=== PATIENT | female | born 1940 | race Caucasian/White ===

== ENCOUNTER 2016-10-29 16:22 | Emergency (ER) | payer OTHER, MEDICARE ==
[~2016-10-29] VITALS: Ht 167.6 cm; Wt 68.0 kg
[~2016-10-29 16:22] MED LIST: ATENOLOL25 MG PO; AUGMENTIN 875-1 EACH PO; BIOTIN10000 MCG PO; CALCIUM 600600 M1 PO; COZAAR 50MG TAB50 MG PO; CRESTOR 10MG10 MG PO; CRESTOR10 MG PO; DILAUDID4 M1 PO; DILTIAZEM HCL120 M2 PO; DILTIAZEM180 MG PO; FISH OIL CONC1000 MG PO; IMURAN 50MG TAB50 MG PO; MAG-OX 400400 MG PO; MELATONIN3 MG PO; MIRALAX119 GM PO; NEURONTIN300 M1 PO; OCUVITE1 TA1 PO; OMEPRAZOLE D/R20 MG PO; PRESERVISION AR1 SGL PO; RITE AID MELATO10 MG PO; SENNA PLUS TAB1 EACH PO; XANAX0.5 MG PO
--- NOTE | 2016-10-29 17:05 | ED CARDIAC/CP/PALPITATIONS ---
History of Present Illness General Chief Complaint: Chest Pain Stated Complaint: SVT PER PT Source: patient, family, old records Exam Limitations: no limitations Allergies Coded Allergies: NO KNOWN ALLERGIES (05/15/16) Reconcile Medications Alprazolam (Xanax) 0.5 MG TAB 1 TAB PO PRN SLEEP (Reported) Amoxicillin/Potassium Clav (Augmentin 875-125 Tablet) 875 MG-125 MG TABLET 1 TAB PO BID PNEUMONIA Ascorbic Acid/Copper/Vitamin (Preservision Areds) 1 SGL SGL 1 SGL PO BID SUPPLEMENT (Reported) Atenolol 25 MG TABLET 1 TAB PO BID HEART (Reported) Azathioprine (Imuran 50MG Tab) 50 MG TABLET 2.5 TAB PO DAILY AUTOIMMUNE ( Reported) Biotin 10,000 MCG CAPSULE 0.5 TAB PO DAILY HAIR (Reported) Calcium Carbonate (Calcium 600) 600 MG TAB 2 TAB PO DAILY SUPPLEMENT ( Reported) DILTIAZEM HCL (Diltiazem 24HR Cd) 180 MG CER 1 CAP PO DAILY HEART/BP ( Reported) Gabapentin (Neurontin) 300 MG CAPSULE 3 CAP PO 0800, 1300 RESTLESS LEG ( Reported) Gabapentin (Neurontin) 300 MG CAPSULE 4 CAP PO QPM RESTLESS LEG (Reported) Hydromorphone HCl (Dilaudid) 4 MG TABLET 1 TAB PO TIDPRN PAIN (Reported) Magnesium Oxide (Mag-Ox 400) 400 MG TAB 1 TAB PO DAILY SUPPLEMENT (Reported) Melatonin ([facility] Melatonin) 10 MG TAB 1 TAB PO DAILY SLEEP (Reported) Polyethylene Glycol 3350 (Miralax) 17 GRAM/DOSE POWDER 17 GM PO DAILY PRN constipation Rosuvastatin Calcium (Crestor) 10 MG TAB 10 MG PO DAILY CHOLESTEROL (Reported ) Triage Nurses Notes Reviewed? yes HPI: 76-year-old female with history of SVT multiple times, she has been seen here multiple times for same, most recently within the last month, she states that she was walking into her ENT appointment as afternoon approximately 45 minutes prior to arrival, when she had sudden onset of symptoms consistent with SVT with fast pounding heart rate, feeling lightheaded and mildly dizzy. She drove to the ER with her . She has had SVT resolved spontaneously, had did resolve with carotid massage and is also required adenosine. She has an marketing summer intern that she has been speaking with about possibly having an ablation. Her symptoms are moderate. She denies any chest pain or shortness of breath. (LADI THOMAS) Vital Signs & Intake/Output Vital Signs & Intake/Output Vital Signs Date Time Temp Pulse Resp B/P Pulse O2 O2 Flow FiO2 Ox Delivery Rate 10/29 1753 97.1 72 18 130/80 97 Room Air 10/29 1744 166 10/29 1643 168 18 129/82 100 Past History Travel History Traveled to [place] past 21 day No Medical History Any Pertinent Medical History? 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 No (LADI THOMAS) Review of Systems Review of Systems Constitutional: Reports: see HPI. EENTM: Reports: no symptoms. Respiratory: Reports: no symptoms. Cardiovascular: Reports: see HPI. GI: Reports: no symptoms. Genitourinary: Reports: no symptoms. Musculoskeletal: Reports: no symptoms. Skin: Reports: no symptoms. Neurological/Psychological: Reports: no symptoms. Hematologic/Endocrine: Reports: no symptoms. Immunologic/Allergic: Reports: no symptoms. All Other Systems: Reviewed and Negative (LADI THOMAS) Physical Exam Physical Exam General Appearance: well developed/nourished Cardiovascular: tachycardia Comments: Well-developed well-nourished no apparent distress. Mildly pale appearing, mildly anxious HEENT: Atraumatic, extraocular motion intact Neck: Supple, no lymphadenopathy Back: Nontender Respiratory: No respiratory distress clear to auscultation bilateral. Heart regular rate and rhythm no murmur Extremities: No edema, full range of motion Neuro: Alert and oriented x3 Psych: Mood affect normal, normal memory normal judgment. Skin: Warm and dry, no rash on exposed skin Core Measures ACS in differential dx? Yes Severe Sepsis Present: No Septic Shock Present: No (LADI THOMAS) Progress Differential Diagnosis: AMI, aortic dissection, atrial fibrillation, cholecystitis, CHF/pulm edema, costochondritis, hyperkalemia, hypovolemia, hyperthyroid, hyperventilation, intracranial hemorrhage, musculoskeletal pain, myocarditis, pancreatitis, pericarditis, pneumonia, pneumothorax, PSVT, pulmonary embolism, PUD/GERD, PVCs/PACs, respiratory failure, rib fracture, sepsis, unstable angina, V-fib/V-Tach, WPW syndrome Initial ED EKG: supraventricular tachycardia at 167 bpm, nonspecific ST-T wave changes likely rate related. changed from most recent previous EKG Prior EKG: changed Rhythm Strip: SVT Comments: Carotid massage return at the bedside. Patient started on IV fluids. No change in SVT. She required adenosine 6 mg IV push. She immediately returned to normal sinus rhythm, continuous EKG was performed which verified this. Her symptoms have resolved. The patient does not wish to stay for blood tests, she has agreed to monitor for the next half hour on the secured entrance monitor to evaluate her rhythm. She is asymptomatic. Patient reevaluated again, she remains asymptomatic, sinus on the monitor at 70 bpm, she is stable for discharge home with close follow-up with her banquet line cook. (LADI THOMAS) Plan of Care: Orders Procedure Date/time Status COMPREHENSIVE METABOLIC PANEL 10/29 1655 Complete CBC WITHOUT DIFFERENTIAL 10/29 1655 Complete EKG 10/29 1623 Active Laboratory Tests 10/29/16 1700: Anion Gap 14, Estimated GFR > 60, BUN/Creatinine Ratio 21.3, Glucose 111 H, Calcium 9.9, Total Bilirubin 0.6, AST 43 H, ALT 25, Alkaline Phosphatase 103, Total Protein 8.1, Albumin 4.5, Globulin 3.6, Albumin/Globulin Ratio 1.3, CBC w Diff NO MAN DIFF REQ, RBC 4.86, MCV 87.9, MCH 29.2, RDW 17.4 H, MPV 7.9, Gran % 53.3, Lymphocytes % 31.1, Monocytes % 11.5 H, Eosinophils % 3.7, Basophils % 0.4, Absolute Granulocytes 3.1, Absolute Lymphocytes 1.8, Absolute Monocytes 0.7 H, Absolute Eosinophils 0.2, Absolute Basophils 0, PUBS MCHC 33.2 Departure Departure Disposition: HOME OR SELF CARE Condition: Stable Clinical Impression Primary Impression: SVT (supraventricular tachycardia) Referrals: UNKNOWN (PCP/Family) Additional Instructions: Follow-up with your marketing summer intern banquet line cook for further evaluation and treatment of your recurrent SVT Return to the ER with any concerning symptoms of chest pain, fast heart rate, feeling dizzy or lightheaded. Departure Forms: Customer Survey General Discharge Information (LADI THOMAS) PA/MEDICAL IMAGING SPECIALIST Co-Sign Statement Statement: ED Attending supervision documentation- [x] I saw and evaluated the patient. I have also reviewed all the pertinent lab results and diagnostic results. I agree with the findings and the plan of care as documented in the PA's/MEDICAL IMAGING SPECIALIST's documentation. [] I have reviewed the ED Record and agree with the PA's/MEDICAL IMAGING SPECIALIST's documentation. [] Additions or exceptions (if any) to the PAs/MEDICAL IMAGING SPECIALIST's note and plan are summarized below: [] (MALOU SULLIVAN,NICK Pretty) Critical Care Note Critical Care Note Critical Care Time: 30-74 min (LADI THOMAS)
[2016-10-29 17:31] LABS: ABSOLUTE BASOPHIL COUNT 0 /CUMM (0.0-0.2); ABSOLUTE EOSINOPHIL COUNT 0.2 /CUMM (0.0-0.7); ABSOLUTE GRANULOCYTE CT 3.1 /CUMM (1.4-6.5); ABSOLUTE LYMPH COUNT 1.8 /CUMM (1.2-3.4); ABSOLUTE MONOCYTE COUNT 0.7 /CUMM (0.10-0.60); BASOPHIL % 0.4 % (0.0-2.0); EOSINOPHIL % 3.7 % (0-5); GRANULOCYTE % 53.3 % (42.2-75.2); HEMATOCRIT 42.8 % (37-47); MEAN CORPUSCULAR HGB 29.2 PG (27.0-31.0); MEAN CORPUSCULAR HGB CONC 33.2 G/DL (33.0-37.0); MEAN CORPUSCULAR VOLUME 87.9 FL (81.0-99.0); MEAN PLATELET VOLUME 7.9 FL (7.4-10.4); PLATELET COUNT 121 /CUMM (130-400); RBC DISTRIBUTION WIDTH 17.4 % (11.5-14.5); RED BLOOD CELL CT 4.86 /CUMM (4.20-5.40); WHITE BLOOD CELL COUNT 5.9 /CUMM (4.8-10.8)
[2016-10-29 17:53] VITALS: BP 130/80
== END 2016-10-29 17:55 ==
LOC: ERH 16:22
PROVIDERS: Physician Assistant Surgical
DX: R07.89 Other chest pain (principal); I47.1 Supraventricular tachycardia
CPT/HCPCS: 93005; 93010; 96374; 99291; J0153

== ENCOUNTER 2016-12-31 06:33 | Emergency (ER) | payer OTHER, MEDICARE ==
[~2016-12-31] VITALS: Ht 167.6 cm; Wt 74.4 kg
[2016-12-31 07:36] LABS: ABSOLUTE BASOPHIL COUNT 0 /CUMM (0.0-0.2); ABSOLUTE EOSINOPHIL COUNT 0.2 /CUMM (0.0-0.7); ABSOLUTE GRANULOCYTE CT 2.8 /CUMM (1.4-6.5); ABSOLUTE MONOCYTE COUNT 0.5 /CUMM (0.10-0.60); BASOPHIL % 0.3 % (0.0-2.0); EOSINOPHIL % 4.2 % (0-5); GRANULOCYTE % 62.8 % (42.2-75.2); HEMATOCRIT 41.8 % (37-47); MEAN CORPUSCULAR HGB 29.7 PG (27.0-31.0); MEAN CORPUSCULAR HGB CONC 33.4 G/DL (33.0-37.0); MEAN CORPUSCULAR VOLUME 88.9 FL (81.0-99.0); MEAN PLATELET VOLUME 8.1 FL (7.4-10.4); PLATELET COUNT 111 /CUMM (130-400); RBC DISTRIBUTION WIDTH 15.8 % (11.5-14.5); WHITE BLOOD CELL COUNT 4.5 /CUMM (4.8-10.8)
[2016-12-31 08:07] VITALS: BP 162/72
--- NOTE | 2016-12-31 08:17 | ED CARDIAC/CP/PALPITATIONS ---
History of Present Illness General Chief Complaint: Chest Pain Stated Complaint: PT C/O CHEST PAIN HX SVT Source: patient, family, old records Exam Limitations: no limitations Vital Signs & Intake/Output Vital Signs & Intake/Output Vital Signs Date Time Temp Pulse Resp B/P B/P Pulse O2 O2 Flow FiO2 Mean Ox Delivery Rate 12/31 0807 98.6 61 18 162/72 98 Room Air 12/31 0702 97 Room Air 12/31 0657 95.5 60 18 194/88 96 Room Air Allergies Coded Allergies: NO KNOWN ALLERGIES (05/15/16) Reconcile Medications Alprazolam (Xanax) 0.5 MG TAB 1 TAB PO PRN SLEEP (Reported) Amoxicillin/Potassium Clav (Augmentin 875-125 Tablet) 875 MG-125 MG TABLET 1 TAB PO BID PNEUMONIA Ascorbic Acid/Copper/Vitamin (Preservision Areds) 1 SGL SGL 1 SGL PO BID SUPPLEMENT (Reported) Atenolol 25 MG TABLET 1 TAB PO BID HEART (Reported) Azathioprine (Imuran 50MG Tab) 50 MG TABLET 2.5 TAB PO DAILY AUTOIMMUNE ( Reported) Baclofen 10 MG TABLET 1 TAB PO TIDPRN PRN muscle spasm/strain Biotin 10,000 MCG CAPSULE 0.5 TAB PO DAILY HAIR (Reported) Calcium Carbonate (Calcium 600) 600 MG TAB 2 TAB PO DAILY SUPPLEMENT ( Reported) DILTIAZEM HCL (Diltiazem 24HR Cd) 180 MG CER 1 CAP PO DAILY HEART/BP ( Reported) Gabapentin (Neurontin) 300 MG CAPSULE 3 CAP PO 0800, 1300 RESTLESS LEG ( Reported) Gabapentin (Neurontin) 300 MG CAPSULE 4 CAP PO QPM RESTLESS LEG (Reported) Hydromorphone HCl (Dilaudid) 4 MG TABLET 1 TAB PO TIDPRN PAIN (Reported) Magnesium Oxide (Mag-Ox 400) 400 MG TAB 1 TAB PO DAILY SUPPLEMENT (Reported) Melatonin ([facility] Melatonin) 10 MG TAB 1 TAB PO DAILY SLEEP (Reported) Polyethylene Glycol 3350 (Miralax) 17 GRAM/DOSE POWDER 17 GM PO DAILY PRN constipation Rosuvastatin Calcium (Crestor) 10 MG TAB 10 MG PO DAILY CHOLESTEROL (Reported ) Triage Note: pt to ed c/o pain under left breast that woke her from sleep at 0430. pain comes and goes, denies at this time. c/o sob even at rest. pain goes to back. took 4 mg hydromorphone at 0500, states "i need to talk to my pain management doctor because now it takes an hour for it to kick in" has chronic back pain. felt light headed and dizzy off and on since yesterday. pmh of acid reflux "it's been worse than normal lately" nsr on ekg, hr 62. had ablation for svt on 11/28 Triage Nurses Notes Reviewed? yes Onset: Morning Duration: hour(s):, continues in ED, intermittent Timing: recent history Quality/Severity: moderate, aching Location: left-sided Radiation: back Activities at Onset: rest Prior Chest Pain/Card Workup: echocardiography, stress test Modifying Factors: Improves With: rest. Nitro Today/Relief: no nitro taken today Aspirin Today: no aspirin today Associated Symptoms: back pain, palpitations LMP (ages 10-50): post menopausal : No Patient currently breastfeeds: No HPI: 2.5 Hours prior to admission patient awoke with palpitations similar to her previous SVT resolving on its own. She then developed her chronic back pain and left-sided chest discomfort described as mild to moderate lasting 10 seconds resolving spontaneous associated with anxiety. She reports having episodes in the past with her back pain accompanied with this chest discomfort. She denies fever chills nausea vomiting diarrhea abdominal pain shortness of breath headache dysuria rash bleeding. She reports her reflux has been worsening of late off Prilosec taking when necessary Pepcid with improvement in symptoms. Past History Travel History Traveled to [place] past 21 day No Medical History Any Pertinent Medical History? 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 No Review of Systems Review of Systems Constitutional: Reports: no symptoms. EENTM: Reports: no symptoms. Respiratory: Reports: no symptoms. Cardiovascular: Reports: see HPI, chest pain, palpitations. GI: Reports: see HPI. Genitourinary: Reports: no symptoms. Musculoskeletal: Reports: see HPI, back pain. Skin: Reports: no symptoms. Neurological/Psychological: Reports: see HPI, anxiety. Hematologic/Endocrine: Reports: no symptoms. Immunologic/Allergic: Reports: no symptoms. All Other Systems: Reviewed and Negative Physical Exam Physical Exam General Appearance: well developed/nourished, alert, awake, anxious, mild distress, obese Head: atraumatic, normal appearance Eyes: Bilateral: normal appearance, PERRL, EOMI. Ears, Nose, Throat: normal pharynx, normal ENT inspection, hearing grossly normal Neck: normal inspection, supple, full range of motion Respiratory: normal breath sounds, chest non-tender, no respiratory distress, quiet respiration, lungs clear Cardiovascular: regular rate/rhythm, normal peripheral pulses, norml femoral pulses equa Peripheral Pulses: 4+ carotid (R), 4+ carotid (L) Gastrointestinal: normal bowel sounds, soft, non-tender, no organomegaly Back: normal inspection, normal range of motion, muscle spasm (left upper back) Extremities: normal inspection, normal capillary refill, normal range of motion, no edema Neurologic/Psych: no motor/sensory deficits, awake, alert, oriented x 3, normal gait, normal mood/affect Reflexes: 2+: bicep (R), bicep (L). Skin: intact, normal color, warm/dry Lymphatic: no anterior cervical eliana Core Measures ACS in differential dx? Yes ASA ordered for poss ACS? No-ACS ruled out Severe Sepsis Present: No Septic Shock Present: No Progress Differential Diagnosis: AMI, hyperkalemia, hypovolemia, musculoskeletal pain, pneumonia, PUD/GERD Plan of Care: Orders Procedure Date/time Status TROPONIN LEVEL 01/01 704 Complete MAGNESIUM 01/01 704 Complete COMPREHENSIVE METABOLIC PANEL 01/01 704 Complete CHOLESTEROL 01/01 704 Complete CBC WITHOUT DIFFERENTIAL 01/01 704 Complete EKG 12/31 0634 Active Current Medications Sig/Gissel Start time Last Medication Dose Stop Time Status Admin Azathioprine 125 MG DAILY 12/31 1000 CAN (Imuran 50MG Tab) Atenolol 25 MG ONCE ONE 12/31 0745 CAN (Tenormin) 12/31 0746 Atorvastatin Calcium 40 MG ONCE ONE 12/31 0745 CAN (Lipitor) 12/31 745 Calcium Carbonate 1,250 MG ONCE ONE 12/31 744 CAN (Calcium Carbonate) 12/31 745 Diltiazem HCl 180 MG ONCE ONE 12/31 744 CAN (Cardizem CD) 12/31 745 Gabapentin 900 MG ONCE ONE 12/31 744 CAN (Neurontin) 12/31 745 Laboratory Tests 12/31/16 0710: Anion Gap 14, Estimated GFR > 60, BUN/Creatinine Ratio 18.6, Glucose 128 H, Calcium 9.5, Magnesium 2.0, Total Bilirubin 0.8, AST 41 H, ALT 23, Alkaline Phosphatase 104, Troponin I < 0.01, Total Protein 8.2, Albumin 4.4, Globulin 3.8 , Albumin/Globulin Ratio 1.2, Cholesterol 158, CBC w Diff NO MAN DIFF REQ, RBC 4.70, MCV 88.9, MCH 29.7, RDW 15.8 H, MPV 8.1, Gran % 62.8, Lymphocytes % 21.3, Monocytes % 11.4 H, Eosinophils % 4.2, Basophils % 0.3, Absolute Granulocytes 2.8, Absolute Lymphocytes 1.0 L, Absolute Monocytes 0.5, Absolute Eosinophils 0.2, Absolute Basophils 0, PUBS MCHC 33.4 CXR Impression: declined CXR Initial ED EKG: normal axis, normal intervals, normal p-waves, normal QRS complex, normal sinus rhythm, no ST T wave changes Departure Departure Time of Disposition: 917 Disposition: HOME OR SELF CARE Condition: Stable Clinical Impression Primary Impression: Palpitations Secondary Impressions: Chronic high back pain, Musculoskeletal chest pain Referrals: AVELINA SULLIVAN,ENRRIQUE Rehman Call for back pain evaluation ANUJA SULLIVAN,GEENA Sawyer Departure Forms: Customer Survey General Discharge Information Prescriptions: Current Visit Scripts Baclofen 1 TAB PO TIDPRN PRN muscle spasm/strain #30 TAB Critical Care Note Critical Care Note Critical Care Time: non-applicable
[2016-12-31] MEDS ORDERED: BACLOFEN10 M1 PO (09:20)
== END 2016-12-31 09:41 ==
LOC: ERH 06:33
PROVIDERS: Emergency Medicine
DX: R00.2 Palpitations (principal); G89.29 Other chronic pain; M54.6 Pain in thoracic spine; R07.89 Other chest pain
CPT/HCPCS: 93005; 93010; 96374; 96375; J0131; J3360

== ENCOUNTER 2017-10-30 13:36 | Emergency (ER) | payer OTHER, MEDICARE ==
[~2017-10-30] VITALS: Ht 166.4 cm; Wt 66.7 kg
[~2017-10-30 13:36] MED LIST changes: +BACLOFEN10 M1 PO
[2017-10-30 13:41] VITALS: BP 139/93
== END 2017-10-30 13:47 | disposition admitted as inpatient to this hospital (09) ==
LOC: ERH 13:36
DX: M62.830 Muscle spasm of back (principal)

== ENCOUNTER 2018-01-26 06:46 | Inpatient (IN) | payer OTHER, MEDICARE ==
[~2018-01-26] VITALS: Ht 167.6 cm; Wt 68.0 kg
[~2018-01-26 06:46] MED LIST changes: +XANAX0.5 M1 PO; -XANAX0.5 MG PO
[2018-01-26 07:32] LABS: ABSOLUTE BASOPHIL COUNT 0 /CUMM (0.0-0.2); ABSOLUTE EOSINOPHIL COUNT 0.3 /CUMM (0.0-0.7); ABSOLUTE GRANULOCYTE CT 3.7 /CUMM (1.4-6.5); ABSOLUTE LYMPH COUNT 0.9 /CUMM (1.2-3.4); ABSOLUTE MONOCYTE COUNT 0.5 /CUMM (0.10-0.60); BASOPHIL % 0.3 % (0.0-2.0); HEMATOCRIT 35.2 % (37-47); MEAN CORPUSCULAR HGB 28.5 PG (27.0-31.0); MEAN CORPUSCULAR HGB CONC 33.2 G/DL (33.0-37.0); MEAN PLATELET VOLUME 7.1 FL (7.4-10.4); PLATELET COUNT 164 /CUMM (130-400); RBC DISTRIBUTION WIDTH 14.4 % (11.5-14.5); RED BLOOD CELL CT 4.09 /CUMM (4.20-5.40); WHITE BLOOD CELL COUNT 5.4 /CUMM (4.8-10.8)
--- NOTE | 2018-01-26 07:47 | ED NECK/BACK PAIN COMPLAINT ---
History of Present Illness General Chief Complaint: Abdominal Pain/Flank Pain Stated Complaint: LOWER BACK PAIN RADIATING TOWARDS FRONT Source: patient, family, old records Exam Limitations: no limitations Vital Signs & Intake/Output Vital Signs & Intake/Output Vital Signs Date Time Temp Pulse Resp B/P B/P Pulse O2 O2 Flow FiO2 Mean Ox Delivery Rate 01/26 1105 98.3 70 16 121/59 96 Room Air 01/26 1020 98.2 77 15 122/62 99 Room Air Room Air 01/26 0654 96.8 90 22 195/81 96 Room Air Room Air Allergies Coded Allergies: NO KNOWN ALLERGIES (05/15/16) Reconcile Medications Alprazolam (Xanax) 0.5 MG TABLET 1 TAB PO QPM PRN SLEEP (Reported) Ascorbic Acid/Copper/Vitamin (Preservision Areds) 1 SGL SGL 1 SGL PO BID SUPPLEMENT (Reported) Azathioprine 50 MG TABLET 2 TAB PO DAILY Hepatitis (Reported) Baclofen 10 MG TABLET 1 TAB PO TIDPRN PRN muscle spasm/strain Biotin 10,000 MCG CAPSULE 0.5 TAB PO DAILY HAIR (Reported) Calcium Carbonate (Calcium 600) 600 MG TAB 2 TAB PO DAILY SUPPLEMENT ( Reported) Gabapentin (Neurontin) 300 MG CAPSULE 900 MG PO TID RESTLESS LEG (Reported) Hydromorphone HCl (Dilaudid) 4 MG TABLET 1 TAB PO TIDPRN PAIN (Reported) Lisinopril 20 MG TABLET 1 TAB PO DAILY HTN (Reported) Magnesium Oxide (Mag-Ox 400) 400 MG TAB 1 TAB PO DAILY SUPPLEMENT (Reported) Melatonin ([facility] Melatonin) 10 MG TAB 1 TAB PO DAILY SLEEP (Reported) Metoprolol Succ XL (Toprol XL) 25 MG TAB 1 TAB PO DAILY bp (Reported) Polyethylene Glycol 3350 (Miralax) 17 GRAM/DOSE POWDER 17 GM PO DAILY PRN constipation Rosuvastatin Calcium (Crestor) 10 MG TAB 10 MG PO DAILY CHOLESTEROL (Reported ) Triage Note: 77YO FEMALE TO TRIAGE W/CO RFLANK AREA PAIN THAT AWOKE HER THIS AM. STATES "SHE HAS HAD BACK PROBLEMS FOR YEARS, HAD AN MRI LAST WEEK" Triage Nurses Notes Reviewed? yes Onset: Just prior to arrival Duration: hour(s):, constant, continues in ED, getting worse Timing: recent history Quality/Severity: severe, sharpness Location: lumbar spine, paraspinous muscles Radiation: RLQ Method of Injury: unknown Loss of Consciousness: no loss of consciousness Modifying Factors: immobilization, movement Associated Symptoms: lower back pain LMP (ages 10-50): post menopausal : No Patient currently breastfeeds: No HPI: Several weeks prior to admission patient complains of postnasal drip nonproductive cough. Prior to admission patient awoke with sharp severe right lower flank with some radiation to the right lower quadrant associated with nausea worse with turning bending. She denies fever chills vomiting diarrhea chest pain shortness of breath headache dysuria rash bleeding change in motor sensory function change in bowel bladder habit. Past History Travel History Traveled to [place] past 21 day No Medical History Any Pertinent Medical History? 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 No Review of Systems Review of Systems Constitutional: Reports: no symptoms. Eyes: Reports: no symptoms. Ears, Nose, Throat, Mouth: Reports: no symptoms. Respiratory: Reports: see HPI, cough. Cardiovascular: Reports: no symptoms. Gastrointestinal/Abdominal: Reports: no symptoms. Musculoskeletal: Reports: see HPI, back pain. Skin: Reports: no symptoms. Neurological/Psychological: Reports: no symptoms. All Other Systems: Reviewed and Negative Physical Exam Physical Exam General Appearance: well developed/nourished, alert, awake, anxious, severe distress Head: atraumatic, normal appearance Eyes: Bilateral: normal appearance, PERRL, EOMI, normal inspection. Ears, Nose, Throat, Mouth: hearing grossly normal, moist mucous membrane Neck: normal inspection, supple, full range of motion, normal alignment Respiratory: normal breath sounds, chest non-tender, no respiratory distress, quiet respiration, lungs clear Cardiovascular: regular rate/rhythm, normal peripheral pulses, norml femoral pulses equa Peripheral Pulses: 4+ carotid (R), 4+ carotid (L) Gastrointestinal: normal bowel sounds, soft, non-tender, no organomegaly Back: normal inspection, decreased range of motion, muscle spasm Extremities: non-tender, normal range of motion Straight Leg Raising: Right: Pain at ____ degrees (5). Left: Pain at ____ degrees (5). Sensory: Medial Le: L4R, L4L. Top of Foot: 2: L5R, L5L. Sole of Foot: 2: SIR, JOSE. Motor: Deficit L4 Right: No Deficit L4 Left: No Deficit L5 Right: No Deficit L5 Left: No Deficit S1 Right: No Deficit S1 Right: No DTR: Deficit L4 Left: No Deficit L4 Right: No Deficit S1 Left: No Deficit S1 Right: No Patellar: 3: L4 Right, L4 Left. Neurologic/Psych: awake, alert, oriented x 3, normal mood/affect Skin: intact, normal color, warm/dry Core Measures CVA/TIA Diagnosis: No Progress Differential Diagnosis: herniated disc, myofascial strain, pyelo/UTI, sciatica Plan of Care: Orders Procedure Date/time Status CBC WITHOUT DIFFERENTIAL 01/27 0600 Active BASIC ELECTROLYTES PLUS BUN&CR 01/27 0600 Active Regular Diet 01/26 L Complete Regular Diet 01/26 D Active Pathway - chart 01/26 1109 Active House Staff 01/26 1109 Active Code Status 01/26 1109 Active Patient Data 01/26 1005 Active BLOOD CULTURE 01/26 0934 Active OXYGEN SETUP (GEN) 01/26 0925 Active Saline Lock 01/26 0925 Active Admit to inpatient 01/26 0925 Active Vital Signs 01/26 0925 Active Activity/Ambulation 01/26 0925 Active BLOOD CULTURE 01/26 0925 Active Code Status 01/26 0925 Complete Intake & Output 01/26 0809 Active URINALYSIS 01/26 0727 Active TROPONIN LEVEL 01/26 0657 Complete LIPASE 01/26 0657 Complete HEPATIC FUNCTION PANEL 01/26 0657 Complete CBC WITHOUT DIFFERENTIAL 01/26 0657 Complete BASIC METABOLIC PANEL 01/26 0657 Complete AMYLASE 01/26 0657 Complete EKG 01/26 0657 Active VTE Mechanical Prophylaxis 01/26 UNK Active Hemoccult 01/26 UNK Active Heat/Cold Therapy 01/26 UNK Active Current Medications Sig/Gissel Start time Last Medication Dose Stop Time Status Admin Enoxaparin Sodium 40 MG DAILY 01/27 0900 AC (Lovenox) Metoprolol Succinate 25 MG DAILY 01/27 0900 AC (Toprol XL) Melatonin 10 MG QPM 01/26 2100 AC (Melatonin) Polyethylene Glycol 17 GM AT BEDTIME 01/26 2100 AC (Miralax) Senna/Docusate Sodium 2 TAB AT BEDTIME 01/26 2100 AC (Senokot S) Atorvastatin Calcium 40 MG 1700 01/26 1700 AC (Lipitor) Gabapentin 900 MG TID 01/26 1400 AC (Neurontin) Ibuprofen 400 MG Q6 01/26 1200 AC (Motrin) Alprazolam 0.5 MG QPM PRN 01/26 1115 AC (Xanax) 02/02 111 Baclofen 10 MG TIDPRN PRN 01/26 111 AC (Lioresal 10MG Tablet) Hydromorphone HCl 1 MG Q4P PRN 01/26 111 AC (Dilaudid) Hydromorphone HCl 4 MG TID PRN 01/26 1115 AC (Dilaudid) Lidocaine 1 PAT Q24H 01/26 1115 AC (Lidoderm) Polyethylene Glycol 17 GM DAILY PRN 01/26 1115 AC (Miralax) Azathioprine 100 MG DAILY 01/26 1113 AC (Imuran 50MG Tab) Lisinopril 20 MG DAILY 01/26 1113 AC (Prinivil) Magnesium Oxide 400 MG DAILY 01/26 1112 AC (Mag-Ox) Laboratory Tests 01/26/18 0754: Anion Gap 11, Estimated GFR > 60, BUN/Creatinine Ratio 22.5, Glucose 118 H, Calcium 9.0, Total Bilirubin 0.4, Direct Bilirubin 0.1, AST 43 H, ALT 19, Alkaline Phosphatase 106, Troponin I < 0.01, Total Protein 7.6, Albumin 3.9, Amylase 104, Lipase 55 01/26/18 0714: CBC w Diff NO MAN DIFF REQ, RBC 4.09 L, MCV 86.0, MCH 28.5, MCHC 33.2, RDW 14.4 , MPV 7.1 L, Gran % 68.0, Lymphocytes % 16.6 L, Monocytes % 10.1 H, Eosinophils % 5.0, Basophils % 0.3, Absolute Granulocytes 3.7, Absolute Lymphocytes 0.9 L, Absolute Monocytes 0.5, Absolute Eosinophils 0.3, Absolute Basophils 0 Microbiology 05/28 1010 BLOOD: Blood Culture - RECD 01/26 0952 BLOOD: Blood Culture - RECD 01/26 0925 BLOOD: Blood Culture - CAN Cancelled: Cancelled via OE: Per MD Decision Diagnostic Imaging: Viewed by Me: Radiology Read, CT Scan. Discussed w/RAD: Radiology Read, CT Scan. Radiology Impression: Multilevel degenerative disc disease with disc bulge and secondary spinal stenosis, most severe at L3-L4. There is marked narrowing of the right L3-L4 lateral recess and neural foramen primarily from disc bulge/ broad-based right-sided herniation and vertebral body bony osteophyte due to scoliosis and facet arthritis. CXR Impression: New focal opacity at the right base merits short-term follow-up with PA and lateral radiographs. Initial ED EKG: normal axis, normal intervals, normal p-waves, normal QRS complex, normal sinus rhythm, no ST T wave changes Prior EKG: unchanged Rhythm Strip: normal sinus rhythm Departure Departure Disposition: STILL A PATIENT Condition: Stable Clinical Impression Primary Impression: Pneumonia Secondary Impressions: Degenerative lumbar spinal stenosis, Facet arthritis of lumbar region Referrals: Villa SULLIVAN,Nidia Sawyer (PCP/Family) Departure Forms: Customer Survey General Discharge Information Admission Note Spoke With: Darrion SULLIVAN,Shilo Documentation of Exam: Documentation of any treatments & extenuating circumstances including Concerns Regarding Discharge (functional status, medication knowledge or non-compliance, living conditions, etc.) that warrant an admission rather than observation: IV antibiotics follow cultures IV analgesia spine evaluation medication adjustment pain management evaluation continuing care discharge planning. Critical Care Note Critical Care Note Critical Care Time: 30-74 min (40)
--- NOTE | 2018-01-26 08:00 | RADIOLOGY REPORT ---
EXAMINATION: XR PORTABLE CHEST CLINICAL INFORMATION: Abdominal pain COMPARISON: 05/19/[address] 06/22/2016 TECHNIQUE: Portable AP 80 degrees upright view of the chest was obtained. FINDINGS: Stable heart and mediastinum within normal limits. Atherosclerotic disease in the aortic arch. Age-related calcifications in the tracheobronchial tree. New minor opacity at the right base could represent focal airspace opacity or pulmonary nodule. Recommend short-term follow-up with PA and lateral radiographs to further characterize and ensure resolution. No associated effusion. Calcific tendinitis left shoulder. Surgical anchor right shoulder. IMPRESSION: New focal opacity at the right base merits short-term follow-up with PA and lateral radiographs.
--- NOTE | 2018-01-26 09:06 | CT SCAN REPORT ---
EXAMINATION: CT ABDOMEN AND PELVIS WITHOUT CONTRAST CLINICAL INFORMATION: Right flank pain. COMPARISON: None. TECHNIQUE: Multidetector volumetric imaging was performed from the superior aspect of the liver through the pubic symphysis. Sagittal and coronal reformatted images were obtained on the technologist's workstation. DLP: 278 mGy-cm. FINDINGS: LUNG BASES: There is evidence of airways disease with mucous plugging in the right middle lobe and lingula. LIVER, GALLBLADDER, AND BILIARY TREE: There are 2 low-attenuation liver lesions probably representing cysts. There is a 1 cm simple-appearing cyst in the lateral segment of the left lobe, axial image 20 series 2. There is a 1.5 x 2.5 cm probable complex cyst with wall calcification in the peripheral right lobe, axial image 23 series 2. There is no intrahepatic or extrahepatic biliary duct dilatation. The gallbladder is unremarkable. PANCREAS: Unremarkable. SPLEEN: Unremarkable. ADRENAL GLANDS: Unremarkable. KIDNEYS AND URETERS: There is a small 1 to 2 mm calcification in the central upper pole of the left kidney, axial image 205 series 3, questionable for a small stone versus possible vascular calcification. The kidneys are otherwise unremarkable. No hydronephrosis, ureteral dilatation or ureteral stone is seen. BLADDER: Unremarkable. GASTROINTESTINAL TRACT: There is stool throughout the colon. There is evidence of mild diverticulosis. Small and large bowel is otherwise unremarkable. The appendix appears to have been removed. ABDOMINAL WALL: There is diastasis of the rectus muscles and broad-based bulge. LYMPH NODES: There are no enlarged lymph nodes. There is no ascites. VASCULAR: There is evidence of atherosclerotic disease. PELVIC VISCERA: The uterus appears to have been removed. No pelvic mass is seen. OSSEOUS STRUCTURES: There are degenerative changes of the spine and lumbar scoliosis. IMPRESSION: Question small 1 to 2 mm left upper pole renal stone versus vascular calcification. No right-sided stone seen. Stool throughout the colon suggestive of constipation. Mild diverticulosis. Liver cysts. Degenerative changes of the spine. Evidence of airways disease with mucous plugging in the right middle lobe and lingula.
--- NOTE | 2018-01-26 09:08 | CT SCAN REPORT ---
EXAMINATION: CT LUMBAR SPINE WITHOUT CONTRAST CLINICAL INFORMATION: History of spinal stenosis and arthritis with worsening right lower back pain. COMPARISON: Previous MRI March 2013. TECHNIQUE: Helical non-contrast CT images were obtained through the lumbar spine and 1.25 and 2.5 mm axial reconstructions were reviewed along with sagittal and coronal MPRs. DLP: 409 mGy-cm. FINDINGS: There is lumbar scoliosis convex to the right with apex at L2. No fracture, dislocation or bone lesion is seen. There is evidence of multilevel degenerative disc disease, most severe at L1-L2, L2-L3 and L3-L4. SPINAL LEVELS: T12-L1: There is right lateral disc bulge. No disc herniation is seen. There is facet arthritis. There is no spinal stenosis. L1-L2: There is broad-based diffuse disc bulge. No disc herniation is seen. There is [id number] secondary spinal stenosis due to disc, short pedicles, and facet arthritis. There is impingement of the left side of the spinal canal from large left protuberant facet bony osteophyte. L2-L3: There is broad-based disc bulge. No disc herniation is seen. There is [id number] secondary spinal stenosis due to disc bulge, short pedicles, and facet arthritis. L3-L4: There is broad-based diffuse disc bulge. There is more focal right lateral disc bulge or broad-based herniation. There is severe secondary spinal stenosis due to disc, short pedicles and facet arthritis. There is severe right-sided lateral recess and neural foraminal narrowing from disc and bony osteophyte. L4-L5: There is broad-based diffuse disc bulge. No disc herniation is seen. There is moderate spinal stenosis due to disc, short pedicles and facet arthritis. L5-S1: There is broad-based diffuse disc bulge. No disc herniation is seen. There is mild spinal stenosis due to short pedicles and facet arthritis. IMPRESSION: Multilevel degenerative disc disease with disc bulge and secondary spinal stenosis, most severe at L3-L4. There is marked narrowing of the right L3-L4 lateral recess and neural foramen primarily from disc bulge/broad-based right-sided herniation and vertebral body bony osteophyte due to scoliosis and facet arthritis.
[2018-01-26] MEDS ORDERED: TOPROL XL25 M1 PO (10:49)
[2018-01-26] MEDS ORDERED: AZATHIOPRINE50 M1 PO (10:50)
--- NOTE | 2018-01-26 11:09 | PN- Att Addend ---
Attending Addendum Attending Brief Note Patient seen and examined in emergency room. Plan of care discussed with the medical team and the patient. Available lab work and radiology test reports were reviewed. In summary this is 77-year-old female with past history of chronic back pain with the vertebral arthritis and is to spinal stenosis on recent MRI who presents with acute worsening of pain since the last night which woke her up from sleep. Pain is in right flank area and seems to radiate to the left back area. She reports some postnasal drip but denies any recent fever chills any sputum production or any chest pain. Denies any nausea vomiting dysuria or abdominal pain otherwise. Vital Signs Date Time Temp Pulse Resp B/P B/P Pulse O2 O2 Flow FiO2 Mean Ox Delivery Rate 01/26 1020 98.2 77 15 122/62 99 Room Air Room Air 01/26 0654 96.8 90 22 195/81 96 Room Air Room Air Intake & Output 01/26 1600 01/26 0800 01/26 0000 Intake Total 0 Output Total Balance 0 Intake, Oral 0 Patient 150 lb Weight Exam: General: Patient awake alert oriented with moderate distress due to back pain CVS: S1 plus S2 without any murmur or gallops Chest: Few scattered crepitation without any wheeze. There is no respiratory distress. 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 without any focal neuro deficit and follows commands appropriately Extremities: No edema; no clubbing or cyanosis noted Back exam shows tendernessin the right flank area without any rash or fluctuation Laboratory Tests 01/26/18 0754: Anion Gap 11, Estimated GFR > 60, BUN/Creatinine Ratio 22.5, Glucose 118 H, Calcium 9.0, Total Bilirubin 0.4, Direct Bilirubin 0.1, AST 43 H, ALT 19, Alkaline Phosphatase 106, Troponin I < 0.01, Total Protein 7.6, Albumin 3.9, Amylase 104, Lipase 55 01/26/18 0714: CBC w Diff NO MAN DIFF REQ, RBC 4.09 L, MCV 86.0, MCH 28.5, MCHC 33.2, RDW 14.4 , MPV 7.1 L, Gran % 68.0, Lymphocytes % 16.6 L, Monocytes % 10.1 H, Eosinophils % 5.0, Basophils % 0.3, Absolute Granulocytes 3.7, Absolute Lymphocytes 0.9 L, Absolute Monocytes 0.5, Absolute Eosinophils 0.3, Absolute Basophils 0 Microbiology 01/26 1010 BLOOD: Blood Culture - RECD 01/26 0952 BLOOD: Blood Culture - RECD 01/26 925 BLOOD: Blood Culture - CAN Cancelled: Cancelled via OE: Per MD Decision CT abd Question small 1 to 2 mm left upper pole renal stone versus vascular calcification. No right-sided stone seen. Stool throughout the colon suggestive of constipation. Mild diverticulosis. Liver cysts. Degenerative changes of the spine. Evidence of airways disease with mucous plugging in the right middle lobe and lingula. CT lumbar spine Multilevel degenerative disc disease with disc bulge and secondary spinal stenosis, most severe at L3-L4. There is marked narrowing of the right L3-L4 lateral recess and neural foramen primarily from disc bulge/broad-based right-sided herniation and vertebral body bony osteophyte due to scoliosis and facet arthritis. cxr New focal opacity at the right base merits short-term follow-up with PA and lateral radiographs. Assessment and problem list * Acute back pain/right flank pain likely related to her chronic spinal stenosis and arthritis * Suspected chronic sinusitis with postnasal drip * I doubt the patient is having active pneumonia at this point given that she has no fever no coughing no chest pain or difficulty breathing and her white cell count is normal * History of hypertension * Hyperlipidemia * History of SVT * Autoimmune hepatitis * Hypertensive urgency-likely due to severe pain and blood pressure has stabilized Plan * Watch patient off antibiotics * Start IV Dilaudid 2 mg every 4 hours when necessary * Apply lidocaine patch right flank area * Consider capsicin cream or diclofenac cream for back * Add Motrin 400 mg 4 times a day for pain control * Continue Neurontin and oral hydromorphone * MiraLAX and Colace and senna to relieve constipation
[2018-01-26] MEDS ORDERED: LISINOPRIL20 M1 PO (11:10)
--- NOTE | 2018-01-26 11:21 | History & Physical ---
General Information and HPI MD Statement: I have seen and personally examined TRISH BRADSHAW and documented this H&P. The patient is a 77 year old F who presented with a patient stated chief complaint of sudden onset right flank pain. Source of Information: patient, family Exam Limitations: no limitations History of Present Illness: Ms. Bradshaw is a 77-year-old woman with past medical history of hypertension, hyperlipidemia, SVT, GERD, CAD who presents to [facility] ED with sudden onset right flank pain. Patient woke up this morning at 5 AM with excruciating right flank pain, radiating around the back in a bandlike pattern, lasting 15 minutes, 15/10 in intensity with no alleviating or aggravating factors. She took Dilaudid 4 mg this morning to some affect with pain not improving, she decided to come to the ED for further evaluation. Patient has several year history of lower back pain, thought to be secondary to degenerative bone disease and spinal stenosis. Today, she denies any urinary complaints, no nausea or vomiting. She denies any abdominal pain. She denies any recent fevers or chills. She denies any cough, phlegm production but does endorse to hoarseness of voice and sinusitis. She was recently treated with Augmentin for sinusitis. Other systems reviewed and negative, except as above. Allergies/Medications Allergies: Coded Allergies: NO KNOWN ALLERGIES (05/15/16) Home Med list Alprazolam (Xanax) 0.5 MG TABLET 1 TAB PO QPM PRN SLEEP (Reported) Ascorbic Acid/Copper/Vitamin (Preservision Areds) 1 SGL SGL 1 SGL PO BID SUPPLEMENT (Reported) Azathioprine 50 MG TABLET 2 TAB PO DAILY Hepatitis (Reported) Baclofen 10 MG TABLET 1 TAB PO TIDPRN PRN muscle spasm/strain Biotin 10,000 MCG CAPSULE 0.5 TAB PO DAILY HAIR (Reported) Calcium Carbonate (Calcium 600) 600 MG TAB 2 TAB PO DAILY SUPPLEMENT ( Reported) Gabapentin (Neurontin) 300 MG CAPSULE 900 MG PO TID RESTLESS LEG (Reported) Hydromorphone HCl (Dilaudid) 4 MG TABLET 1 TAB PO TIDPRN PAIN (Reported) Lisinopril 20 MG TABLET 1 TAB PO DAILY HTN (Reported) Magnesium Oxide (Mag-Ox 400) 400 MG TAB 1 TAB PO DAILY SUPPLEMENT (Reported) Melatonin ([facility] Melatonin) 10 MG TAB 1 TAB PO DAILY SLEEP (Reported) Metoprolol Succ XL (Toprol XL) 25 MG TAB 1 TAB PO DAILY bp (Reported) Polyethylene Glycol 3350 (Miralax) 17 GRAM/DOSE POWDER 17 GM PO DAILY PRN constipation Rosuvastatin Calcium (Crestor) 10 MG TAB 10 MG PO DAILY CHOLESTEROL (Reported ) Past History Travel History Traveled to [place] past 21 day No Medical History Neurological: NONE EENT: DEVIATED SEPTUM Cardiovascular: hypertension, hyperlipidemia, SVT Respiratory: NONE Gastrointestinal: GERD Hepatic: AUTOIMMUNE HEP LIVER TUMOR Renal: NONE Musculoskeletal: disk herniation Psychiatric: NONE Endocrine: NONE Blood Disorders: NONE 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 spouse Services at Home: None Primary Language: [place]ican Living Will? no Functional Ability ADLs Independent: dressing, eating, toileting, bathing. Ambulation: independent IADLs Independent: shopping, housework, finances, food prep, telephone, transportation , medication admin. Review of Systems Review of Systems Constitutional: Reports: see HPI. Exam & Diagnostic Data Last 24 Hrs of Vital Signs/I&O Vital Signs Date Time Temp Pulse Resp B/P B/P Pulse O2 O2 Flow FiO2 Mean Ox Delivery Rate 01/26 1105 98.3 70 16 121/59 96 Room Air 01/26 1020 98.2 77 15 122/62 99 Room Air Room Air 01/26 0654 96.8 90 22 195/81 96 Room Air Room Air Intake & Output 01/26 1600 01/26 0800 01/26 0000 Intake Total 0 Output Total Balance 0 Intake, Oral 0 Patient 150 lb Weight Physical Exam General Appearance Alert, Oriented X3, Cooperative HEENT Atraumatic, PERRLA, EOMI Neck Supple, No JVD Cardiovascular Regular Rate, Normal S1, Normal S2 Lungs Clear to Auscultation, Normal Air Movement Abdomen Normal Bowel Sounds, Soft, No Tenderness, No CVA tenderness Neurological Normal Gait, Normal Speech, Strength at 5/5 X4 Ext, Sensation Intact Extremities No Clubbing, No Cyanosis, No Edema Last 24 Hrs of Labs/Roberto: Laboratory Tests 01/26/18 0754: Anion Gap 11, Estimated GFR > 60, BUN/Creatinine Ratio 22.5, Glucose 118 H, Calcium 9.0, Total Bilirubin 0.4, Direct Bilirubin 0.1, AST 43 H, ALT 19, Alkaline Phosphatase 106, Troponin I < 0.01, Total Protein 7.6, Albumin 3.9, Amylase 104, Lipase 55 01/26/18 0714: CBC w Diff NO MAN DIFF REQ, RBC 4.09 L, MCV 86.0, MCH 28.5, MCHC 33.2, RDW 14.4 , MPV 7.1 L, Gran % 68.0, Lymphocytes % 16.6 L, Monocytes % 10.1 H, Eosinophils % 5.0, Basophils % 0.3, Absolute Granulocytes 3.7, Absolute Lymphocytes 0.9 L, Absolute Monocytes 0.5, Absolute Eosinophils 0.3, Absolute Basophils 0 Microbiology 01/26 1010 BLOOD: Blood Culture - RECD 01/26 0952 BLOOD: Blood Culture - RECD 01/26 0925 BLOOD: Blood Culture - CAN Cancelled: Cancelled via OE: Per MD Decision Diagnostic Data EKG Results Sinus rhythm CXR Results IMPRESSION: New focal opacity at the right base merits short-term follow-up with PA and lateral radiographs. Other Results Lumbar spine CT: IMPRESSION: Multilevel degenerative disc disease with disc bulge and secondary spinal stenosis, most severe at L3-L4. There is marked narrowing of the right L3-L4 lateral recess and neural foramen primarily from disc bulge/broad-based right-sided herniation and vertebral body bony osteophyte due to scoliosis and facet arthritis. CT A/p: IMPRESSION: Question small 1 to 2 mm left upper pole renal stone versus vascular calcification. No right-sided stone seen. Stool throughout the colon suggestive of constipation. Mild diverticulosis. Liver cysts. Degenerative changes of the spine. Evidence of airways disease with mucous plugging in the right middle lobe and lingula. Assessment/Plan Assessment: 77-year-old woman with long-standing history of lower back pain due to spinal stenosis as well as arthritis, hypertension, hyperlipidemia, autoimmune hepatitis who presented to [facility] ED after an episode of excruciating pain to right flank with no radiation to groin, no nausea vomiting or fevers underwent CT scan of abdomen pelvis and lumbar spine with no evidence of kidney disease or nephrolithiasis, spiral CT revealing of multilevel degenerative disease with disc bulge and spinal stenosis and facet arthritis. Chest x-ray with new focal opacity right base, subsequent chest CT showing mucus plugging in right midlung and lingula. No leukocytosis, no bandemia. 1. Acute right flank pain. Optimal pain control with narcotic and nonnarcotic combination. Check UA. Monitor for fevers, monitor leukocytosis. Outpatient follow-up with pain management for better control of pain symptoms. 2. Anemia. Iron studies. Mild degree of iron deficiency can highly contribute to restless leg syndrome as well as neuropathic lower extremity pains. Supplementing with FeSO4 may help, pending serum iron levels. 3. Right base focal opacity on chest x-ray. Continue to monitor off antibiotics. 4. Abdomen hepatitis. Continue Imuran. 5. Hypertension. Continue home medications. 6. Hyperlipidemia. Continue atorvastatin. 7. Constipation. Aggressive bowel regimen while on narcotics. DNR/DNI. Lovenox for DVT prophylaxis. Regular diet. As Ranked By This Provider Problem List: 1. Facet arthritis of lumbar region Core Measures/Misc (05/18) Acute Coronary Syndrome ACS Diagnosis: No Congestive Heart Failure Congestive Heart Failure Diagnosis No Cerebrovascular Accident CVA/TIA Diagnosis: No VTE (View Protocol) VTE Risk Factors Immobility No Mechanical VTE Prophylaxis d/t N/A MechProphylax Ordered No VTE Pharm Prophylaxis d/t NA PharmProphylax ordered Sepsis (View protocol) Sepsis Present: No If YES complete Sepsis Event Note If YES complete Sepsis Event Note
--- NOTE | 2018-01-26 12:13 | Admission Certification ---
Admission Certification Certification Statement - As attending physician, I certify that at the time of - admission, based on clinical presentation, severity of - symptoms, need for further diagnostic testing and - therapeutic interventions, and risk of adverse outcomes - without in-hospital treatment, in my clinical assessment, - this patient requires an acute hospital stay for a minimum - of two nights or longer. I have also considered psychsocial - factors such as support system, advanced age, financial - issues, cognitive issues, and failed out-patient treatments, - past re-admission history, safety of patient, and lack of - compliance as applicable. Specific rationale supporting this admission is: Severe back pain
[2018-01-26 15:28] VITALS: BP 11/60
[2018-01-26 16:24] VITALS: BP 121/60
[2018-01-26 21:46] VITALS: BP 118/58
[2018-01-27 05:36] VITALS: BP 102/52
[2018-01-27 07:54] LABS: ABSOLUTE BASOPHIL COUNT 0 /CUMM (0.0-0.2); ABSOLUTE EOSINOPHIL COUNT 0.3 /CUMM (0.0-0.7); ABSOLUTE LYMPH COUNT 0.9 /CUMM (1.2-3.4); ABSOLUTE MONOCYTE COUNT 0.5 /CUMM (0.10-0.60); BASOPHIL % 0.4 % (0.0-2.0); EOSINOPHIL % 5.7 % (0-5); HEMATOCRIT 30.8 % (37-47); MEAN CORPUSCULAR HGB 28.6 PG (27.0-31.0); MEAN CORPUSCULAR HGB CONC 33.3 G/DL (33.0-37.0); MEAN PLATELET VOLUME 7.1 FL (7.4-10.4); PLATELET COUNT 143 /CUMM (130-400); RBC DISTRIBUTION WIDTH 14.6 % (11.5-14.5); RED BLOOD CELL CT 3.58 /CUMM (4.20-5.40); WHITE BLOOD CELL COUNT 4.7 /CUMM (4.8-10.8)
--- NOTE | 2018-01-27 08:23 | PN- Housestaff ---
See Addendum Subjective Follow-up For: Right flank pain Subjective: Notes overall improvement. No further episodes of excruciating right flank pain. No fevers or chills overnight. No cough or phlegm production. Review of Systems Constitutional: Reports: see HPI. Objective Last 24 Hrs of Vital Signs/I&O Vital Signs Date Time Temp Pulse Resp B/P B/P Pulse O2 O2 Flow FiO2 Mean Ox Delivery Rate 01/27 0536 98.0 66 18 102/52 98 Room Air 01/26 2146 98.0 71 18 118/58 94 Room Air 01/26 1624 121/60 01/26 1528 98.3 70 18 11/60 95 Room Air 01/26 1256 74 136/60 01/26 1105 98.3 70 16 121/59 96 Room Air 01/26 1020 98.2 77 15 122/62 99 Room Air Room Air Intake & Output 01/27 1600 01/27 0800 01/27 0000 Intake Total Output Total 400 Balance -400 Output, Urine 400 Physical Exam General Appearance: Alert, Oriented X3, Cooperative Cardiovascular: Regular Rate, Normal S1, Normal S2 Lungs: Clear to Auscultation, Normal Air Movement Abdomen: Normal Bowel Sounds, Soft, No Tenderness Extremities: No Clubbing, No Cyanosis, No Edema Current Medications: Current Medications Sig/Gissel Start time Last Medication Dose Route Stop Time Status Admin Alprazolam 0.5 MG QPM PRN 01/26 1115 AC 01/26 PO 02/02 1114 2217 Atorvastatin Calcium 40 MG 1700 01/26 1700 AC 01/26 PO 1709 Azathioprine 100 MG DAILY 01/26 1113 AC 01/26 PO 1255 Azithromycin 500 MG ONCE ONE 01/26 0930 DC 01/26 Sodium Chloride 250 ML IV 01/26 1029 1015 Baclofen 10 MG TIDPRN PRN 01/26 1115 AC PO Ceftriaxone Sodium 0 .STK-MED ONE 01/26 0942 DC .ROUTE Ceftriaxone Sodium 1,000 MG ONCE ONE 01/26 0930 DC 01/26 IV 01/26 0931 1015 Enoxaparin Sodium 40 MG DAILY 01/27 0900 AC SC Ferrous Sulfate 325 MG DAILY 01/26 1205 AC 01/26 PO 1708 Gabapentin 900 MG TID 01/26 1400 AC 01/26 PO 2026 Hydromorphone HCl 1 MG Q4P PRN 01/26 1115 AC IV Hydromorphone HCl 4 MG TID PRN 01/26 1115 AC 01/26 PO 2214 Ibuprofen 400 MG Q6 01/26 1200 AC 01/27 PO 0508 Lidocaine 1 PAT Q24H 01/26 1115 AC 01/26 EXT 1256 Lisinopril 20 MG DAILY 01/26 1113 AC 01/26 PO 1256 Magnesium Oxide 400 MG DAILY 01/26 1112 AC 01/26 PO 1212 Melatonin 10 MG QPM 01/26 2100 AC 01/26 PO 221 Metoprolol Succinate 25 MG DAILY 01/27 0900 AC PO Polyethylene Glycol 17 GM AT BEDTIME 01/26 2100 AC PO Polyethylene Glycol 17 GM DAILY PRN 01/26 111 AC PO Senna/Docusate Sodium 2 TAB AT BEDTIME 01/26 2100 AC PO Last 24 Hrs of Lab/Roberto Results Last 24 Hrs of Labs/Mics: Laboratory Tests 01/27/18 0654: Sodium Pending, Potassium Pending, Chloride Pending, Carbon Dioxide Pending, Anion Gap Pending, BUN Pending, Creatinine Pending, BUN/Creatinine Ratio Pending , CBC w Diff NO MAN DIFF REQ, RBC 3.58 L, MCV 86.0, MCH 28.6, MCHC 33.3, RDW 14.6 H, MPV 7.1 L, Gran % 65.0, Lymphocytes % 18.3 L, Monocytes % 10.6 H, Eosinophils % 5.7 H, Basophils % 0.4, Absolute Granulocytes 3.0, Absolute Lymphocytes 0.9 L, Absolute Monocytes 0.5, Absolute Eosinophils 0.3, Absolute Basophils 0 01/27/18 0600: Methylmalonic Acid Pending 01/26/18 1600: Urine Color YEL, Urine Clarity HAZY H, Urine pH 6.0, Ur Specific [place] >= 1.030, Urine Protein NEG, Urine Ketones NEG, Urine Nitrite NEG, Urine Bilirubin NEG, Urine Urobilinogen 0.2, Ur Leukocyte Esterase TRACE H, Ur Microscopic SEDIMENT EXAMINED, Urine RBC 1-3, Urine WBC 1-3 H, Ur Epithelial Cells FEW, Urine Bacteria FEW H, Urine Mucus FEW, Urine Hemoglobin SMALL H, Urine Glucose NEG Microbiology 01/26 1010 BLOOD: Blood Culture - RECD 01/26 0952 BLOOD: Blood Culture - RECD 01/26 925 BLOOD: Blood Culture - CAN Cancelled: Cancelled via OE: Per MD Decision Assessment/Plan Assessment: 77-year-old woman with long-standing history of lower back pain due to spinal stenosis as well as arthritis, hypertension, hyperlipidemia, autoimmune hepatitis who presented to [facility] ED after an episode of excruciating pain to right flank with no radiation to groin, no nausea vomiting or fevers underwent CT scan of abdomen pelvis and lumbar spine with no evidence of kidney disease or nephrolithiasis, non con CT revealing of multilevel degenerative disease with disc bulge and spinal stenosis and facet arthritis. Chest x-ray with new focal opacity right base, subsequent chest CT showing mucus plugging in right midlung and lingula. No leukocytosis, no bandemia. 1. Acute right flank pain. Pain well controlled. Outpatient follow-up with pain management for better control of pain symptoms. Outpatient orthopedic follow-up. 2. Anemia. Iron deficient, likely contributing to neuropathic pains as well as restless leg syndrome. Repeat with daily iron sulfate. 3. Right base focal opacity on chest x-ray. No CT evidence. No need for antibiotics. 4. Autoimmune hepatitis. Continue Imuran. Outpatient GI follow-up. 5. Hypertension. Continue home medications. 6. Hyperlipidemia. Continue atorvastatin. 7. Constipation. Patient does not want MiraLAX and senna. Dietary modification suggested while on narcotics Stable for discharge. DNR/DNI. Lovenox for DVT prophylaxis. Regular diet. Problem List: 1. Autoimmune hepatitis 2. Facet arthritis of lumbar region Pain Ratin Pain Location: Back Pain Goal: Remain pain free Pain Plan: PRN Tomorrow's Labs & Rationales: Not needed
[2018-01-27] MEDS ORDERED: IBUPROFEN400 M1 PO (08:40)
[2018-01-27] MEDS ORDERED: LIDODERM1 EACH EXT (08:40)
[2018-01-27] MEDS ORDERED: FERROUS SULFAT325 M2 PO (08:40)
--- NOTE | 2018-01-27 08:42 | Patient Discharge Instructions ---
Discharge Instructions General Discharge Information You were seen/treated for: Right flank pain. Watch for these problems: Worsening back pain Urine or bowel incontinence Burning with urination, blood in urine or blood in stools. Special Instructions: Please follow-up with primary care physician as an outpatient. Please follow-up with orthopedic service as an outpatient. Please follow-up with pain management as an outpatient. Diet Continue normal diet: Yes Activity Full Activity/No Limits: Yes Acute Coronary Syndrome Inclusion Criteria At DC or during hospital stay patient has or had the following: ACS DIAGNOSIS No Discharge Core Measures Meds if any: Prescribed or Continued at Discharge Meds if any: NOT Prescribed or Continued at Discharge Congestive Heart Failure Inclusion Criteria At DC or during hospital stay patient has or had the following: CHF DIAGNOSIS No Discharge Core Measures Meds if any: Prescribed or Continued at Discharge Meds if any: NOT Prescribed or Continued at Discharge Cerebrovascular accident Inclusion Criteria At DC or during hospital stay patient has or had the following: CVA/TIA Diagnosis No Discharge Core Measures Meds if any: Prescribed or Continued at Discharge Meds if any: NOT Prescribed or Continued at Discharge Venous thromboembolism Inclusion Criteria VTE Diagnosis No VTE Type NONE VTE Confirmed by (Test) NONE Discharge Core Measures - Per Current guidelines, there needs to be overlap - treatment for the first 5 days of Warfarin therapy. - If discharged on Warfarin prior to 5 days of - overlap therapy, the patient will need to be - assessed for post discharge needs including - *Post discharge parental anticoagulation - *Warfarin and/or parental anticoagulation education - *Follow up date to check INR post discharge At least 5 days overlap therapy as Inpatient No Meds if any: Prescribed or Continued at Discharge Note: Overlap Therapy is Warfarin and Anticoagulant Meds if any: NOT Prescribed or Continued at Discharge
[2018-01-27] MEDS ORDERED: FLONASE ALLERG9.9 ML NAS (08:46)
[2018-01-27 09:45] VITALS: BP 128/58
--- NOTE | 2018-01-27 14:38 | Discharge Summary ---
Visit Information Visit Dates Admission Date: 01/26/18 Discharge Date: 01/27/18 Hospital Course Course Attending Physician: Darrion SULLIVAN,Shilo Primary Care Physician: Nidia Driver MD, I. Hospital Course: 77-year-old woman with long-standing history of lower back pain due to spinal stenosis as well as arthritis, hypertension, hyperlipidemia, autoimmune hepatitis who presented to [facility] ED after an episode of excruciating pain to right flank with no radiation to groin, no nausea vomiting or fevers underwent CT scan of abdomen pelvis and lumbar spine with no evidence of kidney disease or nephrolithiasis, CT revealing of multilevel degenerative disease with disc bulge and spinal stenosis and facet arthritis. Chest x-ray with new focal opacity right base, subsequent chest CT showing mucus plugging in right midlung and lingula. No leukocytosis, no bandemia. 1. Acute right flank pain likely secondary to degenerative disease with disc bulge and spinal stenosis. Optimal pain control with narcotic and nonnarcotic combination was provided. UA remained negative. No fevers, no leukocytosis during hospital stay. Outpatient follow-up with pain management for better control of pain symptoms. 2. Anemia. Iron studies showed Fe deficiency, started Iron supplementation. 3. Right base focal opacity on chest x-ray. Ct showed no evidence of PNA. No antibiotics were given. 4. Abdomen hepatitis. Continue Imuran. 5. Hypertension. Continue home medications. 6. Hyperlipidemia. Continue atorvastatin. 7. Constipation. Aggressive bowel regimen while on narcotics. Patient show extra ordinary turn around in her symptoms and was ready for discahrge on 01/27/18. DNR/DNI. Lovenox for DVT prophylaxis. Regular diet. Allergies: Coded Allergies: NO KNOWN ALLERGIES (05/15/16) Disposition Summary Disposition Principal Diagnosis: Low back pain 2/2 spinal stenosis Additional Diagnosis: Iron deficiency anemia Discharge Disposition: home or self care Discharge Instructions General Discharge Information Code Status: Full Code Patient's Diet: Regular Patient's Activity: As tolerated Follow-Up Instructions/Appts: Follow up with PCP, ortho and pain management. Medications at Discharge Discharge Medications: Continue taking these medications: Magnesium Oxide (Mag-Ox 400) 400 MG TAB 1 Tablet ORAL DAILY Comments: PER PT Calcium Carbonate (Calcium 600) 600 MG TAB 2 Tablet ORAL DAILY Comments: PER PT Hydromorphone HCl (Dilaudid) 4 MG TABLET 1 Tablet ORAL THREE TIMES A DAY NEEDED Comments: NOT GIVEN IN HOSPITAL Melatonin ([facility] Melatonin) 10 MG TAB 1 Tablet ORAL DAILY Comments: PER PT Alprazolam (Xanax) 0.5 MG TABLET 1 Tablet ORAL Every night as needed for SLEEP Comments: Last Taken:01/26/18 Time:22:17 Gabapentin (Neurontin) 300 MG CAPSULE 900 Milligram ORAL THREE TIMES DAILY Qty = 120 Comments: Last Taken: 01/27/18 Time: 0945 AM Biotin (Biotin) 10,000 MCG CAPSULE 0.5 Tablet ORAL DAILY Comments: NOT GIVEN IN HOSPITAL Ascorbic Acid/Copper/Vitamin (Preservision Areds) 1 SGL SGL 1 SGL ORAL TWICE DAILY Comments: AREDS 2 PER PT Rosuvastatin Calcium (Crestor) 10 MG TAB 10 Milligram ORAL DAILY Comments: PER PT Polyethylene Glycol 3350 (Miralax) 17 GRAM/DOSE POWDER 17 Gram ORAL DAILY as needed for constipation Qty = 15 Comments: NOT GIVEN IN HOSPITAL Baclofen (Baclofen) 10 MG TABLET 1 Tablet ORAL THREE TIMES A DAY NEEDED as needed for muscle spasm/strain Qty = 30 Comments: NOT GIVEN IN HOSPITAL Metoprolol Succ XL (Toprol XL) 25 MG TAB 1 Tablet ORAL DAILY Comments: Last Taken:01/27/18 Time:0945 AM Azathioprine (Azathioprine) 50 MG TABLET 2 Tablet ORAL DAILY Comments: Last Taken:01/27/18 Time:0945 Lisinopril (Lisinopril) 20 MG TABLET 1 Tablet ORAL DAILY Comments: Last Taken:01/27/18 Time:0945 AM Start taking the following new medications: Ferrous Sulfate (Ferrous Sulfate) 325 MG (65 MG IRON) TABLET.DR 325 Milligram ORAL DAILY Qty = 30 No Refills Comments: Last Taken:01/27/18 Time:0945 AM Lidocaine (Lidoderm) 5 % ADH..PATCH 1 Patch ON SKIN Q24H as needed for PAIN Qty = 10 No Refills Comments: Last Taken:01/27/18 Time:10:20 AM Fluticasone Propionate (Flonase Allergy Relief) 50 MCG/ACTUATION SPRAY.SUSP 1 [place] In the nose QPM as needed for NASAL CONGESTION Qty = 2 Refills = 1 Comments: NOT GIVEN IN HOSPITAL Copies To: [place] SULLIVAN,Nidia Sawyer
== END 2018-01-27 12:14 | DRG 552 ==
LOC: ERH 06:46 → ERHI 09:25 → 2NB 09:25 → ENRESERV 10:43 → 2NB 11:47 → ENPENDDIS 01-27 10:32 → ENTRNSPT 01-27 11:38 → EDTRNSPTSTS 01-27 12:11 → EDTRNSPT 01-27 12:11 → 2NB 01-27 12:14 → CMPTRNSPT 01-27 12:28
PROVIDERS: Internal Medicine Hematology & Oncology; Pediatrics
DX: M48.061 Spinal stenosis, lumbar region without neurogenic claudication (principal); K75.4 Autoimmune hepatitis; M51.36 Other intervertebral disc degeneration, lumbar region; M51.26 Other intervertebral disc displacement, lumbar region; I10 Essential (primary) hypertension; E78.5 Hyperlipidemia, unspecified; K21.9 Gastro-esophageal reflux disease without esophagitis; I25.10 Atherosclerotic heart disease of native coronary artery without angina pectoris; K59.00 Constipation, unspecified; Z66 Do not resuscitate; D50.9 Iron deficiency anemia, unspecified; Z90.49 Acquired absence of other specified parts of digestive tract; Z90.710 Acquired absence of both cervix and uterus
CPT/HCPCS: 2NBSP; 36592; 71045; 74176; 81001; 82436; 87040; 93005; 93010; 96365; 96375; 99291; J0456; J0696; J1650; J1885; J7040

== ENCOUNTER 2018-03-15 08:09 | Emergency (ER) | payer OTHER, MEDICARE ==
[~2018-03-15 08:09] MED LIST changes: +AZATHIOPRINE50 M1 PO; +FERROUS SULFAT325 M2 PO; +FLONASE ALLERG9.9 ML NAS; +IBUPROFEN400 M1 PO; +LIDODERM1 EACH EXT; +LISINOPRIL20 M1 PO; +TOPROL XL25 M1 PO
--- NOTE | 2018-03-15 09:00 | ED CARDIAC/CP/PALPITATIONS ---
History of Present Illness General Chief Complaint: Palpitations Stated Complaint: PALPITATIONS Source: patient, old records, Exam Limitations: no limitations Vital Signs & Intake/Output Vital Signs & Intake/Output Vital Signs Date Time Temp Pulse Resp B/P B/P Pulse O2 O2 Flow FiO2 Mean Ox Delivery Rate 03/15 1143 85 16 178/86 98 Room Air 03/15 1021 98.1 73 20 190/88 98 Room Air 03/15 0822 97.1 80 16 171/81 99 Room Air Allergies Coded Allergies: NO KNOWN ALLERGIES (05/15/16) Reconcile Medications Alprazolam (Xanax) 0.5 MG TABLET 1 TAB PO QPM PRN SLEEP (Reported) Ascorbic Acid/Copper/Vitamin (Preservision Areds) 1 SGL SGL 1 SGL PO BID SUPPLEMENT (Reported) Azathioprine 50 MG TABLET 2 TAB PO DAILY Hepatitis (Reported) Baclofen 10 MG TABLET 1 TAB PO TIDPRN PRN muscle spasm/strain Biotin 10,000 MCG CAPSULE 0.5 TAB PO DAILY HAIR (Reported) Calcium Carbonate (Calcium 600) 600 MG TAB 2 TAB PO DAILY SUPPLEMENT ( Reported) Ferrous Sulfate 325 MG (65 MG IRON) TABLET.DR 325 MG PO DAILY Iron deficiency Fluticasone Propionate (Flonase Allergy Relief) 50 MCG/ACTUATION SPRAY.SUSP 1 SPRAY NEGAR QPM PRN NASAL CONGESTION Gabapentin (Neurontin) 300 MG CAPSULE 900 MG PO TID RESTLESS LEG (Reported) Hydromorphone HCl (Dilaudid) 4 MG TABLET 1 TAB PO TIDPRN PAIN (Reported) Lidocaine (Lidoderm) 5 % ADH..PATCH 1 PAT EXT Q24H PRN PAIN Lisinopril 20 MG TABLET 1 TAB PO DAILY HTN (Reported) Magnesium Oxide (Mag-Ox 400) 400 MG TAB 1 TAB PO DAILY SUPPLEMENT (Reported) Melatonin ([facility] Melatonin) 10 MG TAB 1 TAB PO DAILY SLEEP (Reported) Metoprolol Succ XL (Toprol XL) 25 MG TAB 1 TAB PO DAILY bp (Reported) Polyethylene Glycol 3350 (Miralax) 17 GRAM/DOSE POWDER 17 GM PO DAILY PRN constipation Rosuvastatin Calcium (Crestor) 10 MG TAB 10 MG PO DAILY CHOLESTEROL (Reported ) Triage Note: PT TO ED WITH FEELING OF PALPITATIONS, HAD A HOLTER MONITOR ON TH - FRI FOR SAME. HAS A HX OF SVT WITH ABLATION. DENIES ANY CP OR SOB. Triage Nurses Notes Reviewed? yes HPI: Patient presents for evaluation of sudden onset of heart palpitations that began while asleep at home at about 4 AM. Patient states that she wore a Holter monitor through and Friday although the results of this are not known at this time (patient had the Holter monitor placed because of a recent history of heart palpitations). Patient denies shortness of breath during the episode but states her chest did feel a little tight. Patient was able to fall back asleep at about 6:30 this morning but upon awakening prior to arrival felt heart palpitations again. Patient denies any associated dizziness fainting or diaphoresis. Past History Travel History Traveled to [place] past 21 day No Medical History Any Pertinent Medical History? 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 No Review of Systems Review of Systems Constitutional: Reports: no symptoms. EENTM: Reports: no symptoms. Respiratory: Reports: no symptoms. Cardiovascular: Reports: see HPI. GI: Reports: no symptoms. Genitourinary: Reports: no symptoms. Musculoskeletal: Reports: no symptoms. Skin: Reports: no symptoms. Neurological/Psychological: Reports: no symptoms. Hematologic/Endocrine: Reports: no symptoms. Immunologic/Allergic: Reports: no symptoms. All Other Systems: Reviewed and Negative Physical Exam Physical Exam Cardiovascular: see below Comments: Gen.: Well-nourished, well-developed, no acute respiratory distress. Head: Normocephalic, atraumatic. Eyes: Normal inspection bilaterally Ears: Normal inspection bilaterally Nose: Normal inspection Throat/mouth : Moist mucosa Neck: Supple, full range of motion, no goiter Heart: Regular rate and rhythm, no murmurs rubs or gallops Lungs: Clear to auscultation bilaterally with normal air entry Chest: Nontender Back: Normal range of motion Abdomen: Soft, nontender, nondistended, normal bowel sounds Extremities: Normal range of motion grossly, equal radial pulses, no cyanosis clubbing or edema Neurologic: Cranial nerves grossly intact, speech is clear Skin: warm and dry Psychiatric: Calm, cooperative, no apparent delusions or hallucinations Core Measures ACS in differential dx? No CVA/TIA Diagnosis No Sepsis Present: No Sepsis Focused Exam Completed? No Progress Differential Diagnosis: SVT, V. tach to V. fib, [id number], atrial fibrillation, anxiety, electrolyte abnormality Plan of Care: Orders Procedure Date/time Status TSH REFLEX 03/15 08 Complete TROPONIN LEVEL 03/15 08 Complete MAGNESIUM 03/15 08 Complete CBC WITHOUT DIFFERENTIAL 03/15 08 Complete BASIC METABOLIC PANEL 03/15 08 Complete EKG 03/15 0810 Active Laboratory Tests 03/15/18 0920: Anion Gap 12, Estimated GFR > 60, BUN/Creatinine Ratio 25.0, Glucose 113 H, Calcium 9.5, Magnesium 2.1, Troponin I < 0.01, TSH &T3 &Free T4 Intrp 1.080, CBC w Diff NO MAN DIFF REQ, RBC 4.68, MCV 87.3, MCH 29.2, MCHC 33.5, RDW 17.8 H, MPV 6.8 L, Gran % 66.1, Lymphocytes % 19.7 L, Monocytes % 10.9 H, Eosinophils % 2.9, Basophils % 0.4, Absolute Granulocytes 3.0, Absolute Lymphocytes 0.9 L, Absolute Monocytes 0.5, Absolute Eosinophils 0.1, Absolute Basophils 0 Initial ED EKG: NSR, rate (80), no ST T wave changes Prior EKG: unchanged Comments: 03/15/2018 11:08:43 AM patient's case discussed with Dr. Galvez who feels the patient is stable for outpatient management. Departure Departure Disposition: HOME OR SELF CARE Condition: Stable Clinical Impression Primary Impression: Heart palpitations Referrals: [facility] SULLIVAN,Nidia Sawyer (PCP/Family) Additional Instructions: Follow-up with your wheel setter on Friday. Return if any concerns or sudden worsening. Thank you for choosing the [facility] for your care. It was a pleasure to serve you today. Ryan Bazan M.D. [facility] Departure Forms: Customer Survey General Discharge Information Critical Care Note Critical Care Note Critical Care Time: non-applicable
[2018-03-15 09:36] LABS: ABSOLUTE BASOPHIL COUNT 0 /CUMM (0.0-0.2); ABSOLUTE EOSINOPHIL COUNT 0.1 /CUMM (0.0-0.7); ABSOLUTE LYMPH COUNT 0.9 /CUMM (1.2-3.4); ABSOLUTE MONOCYTE COUNT 0.5 /CUMM (0.10-0.60); BASOPHIL % 0.4 % (0.0-2.0); EOSINOPHIL % 2.9 % (0-5); GRANULOCYTE % 66.1 % (42.2-75.2); HEMATOCRIT 40.8 % (37-47); MEAN CORPUSCULAR HGB 29.2 PG (27.0-31.0); MEAN CORPUSCULAR HGB CONC 33.5 G/DL (33.0-37.0); MEAN CORPUSCULAR VOLUME 87.3 FL (81.0-99.0); MEAN PLATELET VOLUME 6.8 FL (7.4-10.4); PLATELET COUNT 133 /CUMM (130-400); RBC DISTRIBUTION WIDTH 17.8 % (11.5-14.5); RED BLOOD CELL CT 4.68 /CUMM (4.20-5.40); WHITE BLOOD CELL COUNT 4.5 /CUMM (4.8-10.8)
[2018-03-15 11:43] VITALS: BP 178/86
== END 2018-03-15 12:02 ==
LOC: ERH 08:09
PROVIDERS: Emergency Medicine
DX: R00.2 Palpitations (principal)
CPT/HCPCS: 93005; 93010